=== PATIENT | female | born 1970 | race Asian ===

== ENCOUNTER 2021-08-14 22:44 | Emergency (ER) | payer OTHER ==
[~2021-08-14] VITALS: Ht 167.6 cm; Wt 74.0 kg
[2021-08-14] MEDS ORDERED: KETOROLAC TROMETHAMINE 30 MG/ML VIAL IM ONE (23:45)
[2021-08-15 01:30] VITALS: BP 129/77
== END 2021-08-15 02:03 | disposition home or self-care (01) ==
LOC: EMS 22:50
DX: E11.40 Type 2 diabetes mellitus with diabetic neuropathy, unspecified (principal); M79.671 Pain in right foot; E78.00 Pure hypercholesterolemia, unspecified; I10 Essential (primary) hypertension
CPT/HCPCS: 73630; 96372; 99283; J1885